=== PATIENT | female | born 1945 | race Caucasian/White ===

== ENCOUNTER 2022-02-24 11:19 | Outpatient (CLI) | payer MEDICARE | END 2022-02-24 11:20 | disposition home or self-care (01) | LOC: TBSIIMAG 11:19 | PROVIDERS: ATTEND Neurological Surgery | DX: S22.080D Wedge compression fracture of T11-T12 vertebra, subsequent encounter for fracture with routine healing (principal); S32.010D Wedge compression fracture of first lumbar vertebra, subsequent encounter for fracture with routine healing | CPT/HCPCS: 72072 ==

== ENCOUNTER 2023-02-17 08:58 | Outpatient (CLI) | payer MEDICARE, OTHER | END 2023-02-17 08:59 | disposition home or self-care (01) | LOC: ULT 08:58 | PROVIDERS: ATTEND Family Medicine Sports Medicine | DX: R74.8 Abnormal levels of other serum enzymes (principal); K80.20 Calculus of gallbladder without cholecystitis without obstruction | CPT/HCPCS: 76700 ==

== ENCOUNTER 2023-11-10 10:25 | Outpatient (CLI) | payer MEDICARE, OTHER | END 2023-11-10 10:26 | disposition home or self-care (01) | LOC: SCSRAD 10:25 | PROVIDERS: ATTEND Nurse Practitioner Family | DX: M25.552 Pain in left hip (principal) ==